=== PATIENT | male | born 1990 | race Caucasian/White ===

== ENCOUNTER 2017-07-12 19:50 | Observation (INO) ==
[2017-07-12] MEDS: Ibuprofen 600 MG TABLET PO ONE ×2 (20:00→20:45)
[2017-07-12] MEDS ORDERED: 0.9 % Sodium Chloride 1,000 ML IVC ONE ×2 (20:37→22:48)
[2017-07-12 20:39] LABS: Bilirubin,Urine Small (Negative); Blood,Urine Negative (Negative); Clarity,Urine Cloudy (Clear); Color,Urine Dark Yellow (Yellow); Glucose,Urine (UA) Normal (Normal); Ketones,Urine Negative (Negative); Leukocyte Esterase,Urine Negative (Negative); Nitrite,Urine Negative (Negative); Protein,Urine 30 mg/dL (Neg-Trace); Urobilinogen,Urine Normal (Normal)
[2017-07-12 20:40] LABS: Basophils % 0.3 %; Eosinophils # 0.1 K/mcL (0.0-0.6); Eosinophils % 1.3 %; Hematocrit 36.3 % (37.5-50.1); Hemoglobin 11.9 g/dL (12.9-16.9); Immature Granulocytes % 0.6 % (0-4); Lymphocytes # 2.3 K/mcL (0.6-4.6); Mean Corpuscular HGB Conc 32.8 g/dL (31.6-35.5); Mean Corpuscular Hemoglobin 28.3 pg (28.0-33.3); Mean Corpuscular Volume 86.2 fL (83.0-100.0); Mean Platelet Volume 9.4 fL (9.4-12.4); Monocytes # 1.1 K/mcL (0.0-1.3); Monocytes % 10.9 %; Neutrophils # 6.3 K/mcL (1.6-8.9); Platelet Count 155 K/mcL (140-400); Red Blood Count 4.21 M/mcL (4.19-5.50); Red Cell Distribution Width 15.7 % (11.5-14.5); Segmented Neutrophils % 63.9 %
--- NOTE | 2017-07-12 20:40 | Emergency Department Note ---
Disposition Clinical Impression: SIRS (systemic inflammatory response syndrome) Disposition: Admitted As Inpatient Condition: Good Referrals: NONE,PCP [Primary Care Provider] - Forms: ED Satisfaction Letter Fever HPI - General Chief Complaint: ED Fever Time Seen by Provider: 07/12/17 20:09 Source: patient Mode of arrival: private vehicle Limitations: no limitations Nursing Notes Reviewed: Yes Vital Signs Reviewed: Yes - History of Present Illness HPI Narrative: 27-year-old male history of prior IV drug use reports 3 months ago, hepatitis, HIV currently undergoing treatment who presents to the ER with a chief complaint of fevers chills generalized body aches cough nausea and vomiting. Reports she has had a fever for 4 days at home. He feels like he is aching all over. States he has had a cough and shortness of breath. He has been nauseated with some vomiting. No chest pain or abdominal pain. He adamantly denies any recent IV drug use. States that his counts were checked 2 months ago and were undetectable. He reports compliance with his medications. No other complaints. Pt Subjective Complaint: fever, malaise, weakness Onset (ago): day(s) Associated symptoms: Reports: chills, myalgias, cough, dyspnea, nausea, vomiting Improves with: nothing Worsens with: nothing Treatments prior to arrival fever: none - Related Data Home Medications Medication Instructions Recorded Confirmed TraZODone 200 mg PO DAILY 03/07/16 05/08/16 Elviteg/Cob/Emtri/Tenof Alafen 1 each PO DAILY 05/08/16 05/08/16 [Genvoya Tablet] Gabapentin [Neurontin] 800 mg PO TID 05/08/16 05/08/16 Previous Rx's Medication Instructions Recorded Quetiapine Fumarate [Seroquel] 300 mg PO HS #90 tablet 05/09/16 hydrOXYzine pamoate [HydrOXYzine 25 mg PO TID PRN #90 capsule 05/09/16 Pamoate] Allergies Allergy/AdvReac Type Severity Reaction Status Date / Time codeine Allergy Hives Verified 03/07/16 19:01 didanosine [From Videx EC] Allergy Hives Verified 03/07/16 19:01 ketorolac [From Toradol] Allergy Hives Verified 03/16/16 18:58 ondansetron Allergy Hives Verified 03/07/16 19:01 [From Zofran (as hydrochloride)] Penicillins [PCN] Allergy Anaphylaxis Verified 03/07/16 19:01 tramadol Allergy Hives Verified 03/07/16 19:01 All systems ED: reviewed and negative except as stated. Constitutional: Reports: fever, chills, weakness Cardiovascular: Denies: chest pain Respiratory: Reports: cough, dyspnea Gastrointestinal: Reports: nausea, vomiting. Denies: abdominal pain Fever PMH - Past Medical History Medical history: Reports: asthma, hepatitis, HIV/AIDS, kidney stones Surgical history: Reports: cholecystectomy Psychiatric history: Reports: no psych history - Social History Smoking Status: Current every day smoker Alcohol use: Reports: none Drug use: Reports: none Physical Exam - General Limitations: no limitations General appearance: alert, anxious - Head Head exam: atraumatic, normocephalic - Eye Eye exam: Present: normal appearance - ENT ENT exam: normal exam - Neck Neck exam: Present: normal inspection, full ROM - Chest Chest inspection: Present: normal inspection, symmetric chest wall rise - Respiratory Respiratory exam: Present: wheezes (Mild end expiratory wheezing.). Absent: respiratory distress, stridor, prolonged expiratory phase - Cardiovascular Cardiovascular exam: Present: normal rhythm, tachycardia, normal heart sounds - Abdominal Exam Abdominal exam: Present: soft, Non-Tender. Absent: tenderness - Extremities Exam Extremities exam: Present: normal inspection, full ROM - Expanded Upper Extremity Exam Shoulder exam: Present: normal inspection, full ROM Arm exam: Present: normal inspection, full ROM Elbow exam: Present: normal inspection, full ROM Forearm/Wrist exam: Present: normal inspection, full ROM Hand exam: Present: normal inspection, full ROM - Expanded Lower Extremity Exam Hip/Pelvis exam: Present: normal inspection, full ROM Upper leg exam: Present: normal inspection, full ROM Knee exam: Present: normal inspection, full ROM Lower leg exam: Present: normal inspection, full ROM Ankle exam: Present: normal inspection, full ROM Foot/toe exam: Present: normal inspection, full ROM - Skin Skin exam: Present: warm, dry Course Course Narrative: Patient seen and examined. He is febrile, tachycardic with a marginal blood pressure. He is alert and answering questions appropriately at this time. We will obtain a sepsis workup including CBC, chem, ESR, CRP, lactate and blood cultures. CT of the chest for evaluation of septic emboli. Rapid influenza swab as well as urinalysis. Patient will begin IV fluid resuscitation with broad-spectrum antibiotics. He will require admission given his immunosuppressed status. - Reevaluation(s) Reevaluation #1: Discussed results of imaging and labs with the patient. He wanted to leave AGAINST MEDICAL ADVICE but then reconsidered and is agreeable with staying. Vital Signs Temperature 103.1 F H 07/12/17 19:51 Pulse Rate 121 07/12/17 19:51 Respiratory Rate 16 07/12/17 19:51 Blood Pressure 98/69 07/12/17 19:51 O2 Sat by Pulse Oximetry 96 07/12/17 19:51 Temperature 103.1 F H 07/12/17 19:51 Pulse Rate 92 07/12/17 23:23 Respiratory Rate 16 07/12/17 23:23 Blood Pressure 108/69 07/12/17 23:23 O2 Sat by Pulse Oximetry 96 07/12/17 19:51 Oxygen Delivery Oxygen Delivery Room Air Fever - MDM Narrative Medical decision making narrative: 27-year-old male presents to the ER due to fevers chills and generalized aches for 4 days. History of HIV and hepatitis. Patient noted to be febrile and tachycardic upon arrival. No source during workup including negative influenza , urinalysis, CT of the chest. Patient's hemodynamics improved here with IV fluids. Patient given vancomycin, aztreonam and Levaquin. Patient admitted to the hospitalist service. - Lab Data Lab results reviewed: Yes I reviewed the patient's lab results. Result diagrams: 07/12/17 16:54 07/12/17 20:31 Lab Results 07/12/17 07/12/17 07/12/17 Range/Units 16:54 20:28 20:28 WBC 9.9 (4.3-11.1) K/mcL RBC 4.21 (4.19-5.50) M/mcL Hgb 11.9 L (12.9-16.9) g/dL Hct 36.3 L (37.5-50.1) % MCV 86.2 (83.0-100.0) fL MCH 28.3 (28.0-33.3) pg MCHC 32.8 (31.6-35.5) g/dL RDW 15.7 H (11.5-14.5) % Plt Count 155 (140-400) K/mcL MPV 9.4 (9.4-12.4) fL Immature Gran % 0.6 (0-4) % Seg Neutrophils % 63.9 % Lymphocytes % 23.0 % Monocytes % 10.9 % Eosinophils % 1.3 % Basophils % 0.3 % Neutrophils # 6.3 (1.6-8.9) K/mcL Lymphocytes # 2.3 (0.6-4.6) K/mcL Monocytes # 1.1 (0.0-1.3) K/mcL Eosinophils # 0.1 (0.0-0.6) K/mcL Basophils # 0.0 (0.0-0.2) K/mcL Reactive Lymphocytes Present A (Not Present) Platelet Estimate Normal (Normal) ESR (0-10) mm/hr Sodium (136-145) mEq/L Potassium (3.5-5.1) mEq/L Chloride (98-107) mEq/L Carbon Dioxide (23-29) mEq/L BUN (6-20) mg/dL Creatinine (0.70-1.30) mg/dL Est GFR ( Amer) (> 60) Est GFR (Non-Af Amer) (> 60) BUN/Creatinine Ratio (6-26) Glucose (70-105) mg/dL Calculated Osmolality (280-300) Lactic Acid (0.5-2.2) mmol/L Calcium (8.6-10.3) mg/dL C-Reactive Protein (Less than 10) mg/L Urine Color Dark Yellow (Yellow) Urine Clarity Cloudy A (Clear) Urine pH 6.0 (5.0-8.0) pH Units Ur Specific [place] 1.030 H (1.010-1.025) Urine Protein 30 H (Neg-Trace) mg/dL Urine Glucose (UA) Normal (Normal) mg/dL Urine Ketones Negative (Negative) mg/dL Urine Blood Negative (Negative) Urine Nitrite Negative (Negative) Urine Bilirubin Small H (Negative) Urine Urobilinogen Normal (Normal) mg/dL Ur Leukocyte Esterase Negative (Negative) Urine Microscopic RBC 5-15 H (0-3) per hpf Urine Microscopic WBC 3-5 H (0-3) per hpf Ur Squamous Epith Cells Moderate H (None-Few) per lpf Urine Bacteria None Seen (None-Few) per hpf Hyaline Casts None Seen (None-Few) per lpf Ur Culture Indicated? NO (NO) Urine Opiates Screen Positive H (Vxeyhe=626) ng/mL Ur Barbiturates Screen Negative (Lxwkqd=564) ng/mL Ur Phencyclidine Scrn Negative (Cutoff=25) ng/mL Ur Amphetamines Screen Negative (Cfaslz=5647) ng/mL U Benzodiazepines Scrn Positive H (Sriwrr=706) ng/mL Urine Cocaine Screen Negative (Cutoff= 300) ng/mL U Marijuana (THC) Screen Positive H (Cutoff = 50) ng/mL Blood Type Antibody Screen 07/12/17 07/12/17 07/12/17 Range/Units 20:31 20:31 20:31 WBC (4.3-11.1) K/mcL RBC (4.19-5.50) M/mcL Hgb (12.9-16.9) g/dL Hct (37.5-50.1) % MCV (83.0-100.0) fL MCH (28.0-33.3) pg MCHC (31.6-35.5) g/dL RDW (11.5-14.5) % Plt Count (140-400) K/mcL MPV (9.4-12.4) fL Immature Gran % (0-4) % Seg Neutrophils % % Lymphocytes % % Monocytes % % Eosinophils % % Basophils % % Neutrophils # (1.6-8.9) K/mcL Lymphocytes # (0.6-4.6) K/mcL Monocytes # (0.0-1.3) K/mcL Eosinophils # (0.0-0.6) K/mcL Basophils # (0.0-0.2) K/mcL Reactive Lymphocytes (Not Present) Platelet Estimate (Normal) ESR 46 H (0-10) mm/hr Sodium 134 L (136-145) mEq/L Potassium 3.9 (3.5-5.1) mEq/L Chloride 104 (98-107) mEq/L Carbon Dioxide 23 (23-29) mEq/L BUN 14 (6-20) mg/dL Creatinine 0.63 L (0.70-1.30) mg/dL Est GFR ( Amer) > 60 (> 60) Est GFR (Non-Af Amer) > 60 (> 60) BUN/Creatinine Ratio 22 (6-26) Glucose 99 (70-105) mg/dL Calculated Osmolality 279 L (280-300) Lactic Acid 1.3 (0.5-2.2) mmol/L Calcium 9.3 (8.6-10.3) mg/dL C-Reactive Protein 51 H (Less than 10) mg/L Urine Color (Yellow) Urine Clarity (Clear) Urine pH (5.0-8.0) pH Units Ur Specific [place] (1.010-1.025) Urine Protein (Neg-Trace) mg/dL Urine Glucose (UA) (Normal) mg/dL Urine Ketones (Negative) mg/dL Urine Blood (Negative) Urine Nitrite (Negative) Urine Bilirubin (Negative) Urine Urobilinogen (Normal) mg/dL Ur Leukocyte Esterase (Negative) Urine Microscopic RBC (0-3) per hpf Urine Microscopic WBC (0-3) per hpf Ur Squamous Epith Cells (None-Few) per lpf Urine Bacteria (None-Few) per hpf Hyaline Casts (None-Few) per lpf Ur Culture Indicated? (NO) Urine Opiates Screen (Xgeqwm=324) ng/mL Ur Barbiturates Screen (Szeahx=514) ng/mL Ur Phencyclidine Scrn (Cutoff=25) ng/mL Ur Amphetamines Screen (Ofigma=9162) ng/mL U Benzodiazepines Scrn (Lqoqjy=430) ng/mL Urine Cocaine Screen (Cutoff= 300) ng/mL U Marijuana (THC) Screen (Cutoff = 50) ng/mL Blood Type Antibody Screen 07/12/17 Range/Units 20:38 WBC (4.3-11.1) K/mcL RBC (4.19-5.50) M/mcL Hgb (12.9-16.9) g/dL Hct (37.5-50.1) % MCV (83.0-100.0) fL MCH (28.0-33.3) pg MCHC (31.6-35.5) g/dL RDW (11.5-14.5) % Plt Count (140-400) K/mcL MPV (9.4-12.4) fL Immature Gran % (0-4) % Seg Neutrophils % % Lymphocytes % % Monocytes % % Eosinophils % % Basophils % % Neutrophils # (1.6-8.9) K/mcL Lymphocytes # (0.6-4.6) K/mcL Monocytes # (0.0-1.3) K/mcL Eosinophils # (0.0-0.6) K/mcL Basophils # (0.0-0.2) K/mcL Reactive Lymphocytes (Not Present) Platelet Estimate (Normal) ESR (0-10) mm/hr Sodium (136-145) mEq/L Potassium (3.5-5.1) mEq/L Chloride (98-107) mEq/L Carbon Dioxide (23-29) mEq/L BUN (6-20) mg/dL Creatinine (0.70-1.30) mg/dL Est GFR ( Amer) (> 60) Est GFR (Non-Af Amer) (> 60) BUN/Creatinine Ratio (6-26) Glucose (70-105) mg/dL Calculated Osmolality (280-300) Lactic Acid (0.5-2.2) mmol/L Calcium (8.6-10.3) mg/dL C-Reactive Protein (Less than 10) mg/L Urine Color (Yellow) Urine Clarity (Clear) Urine pH (5.0-8.0) pH Units Ur Specific [place] (1.010-1.025) Urine Protein (Neg-Trace) mg/dL Urine Glucose (UA) (Normal) mg/dL Urine Ketones (Negative) mg/dL Urine Blood (Negative) Urine Nitrite (Negative) Urine Bilirubin (Negative) Urine Urobilinogen (Normal) mg/dL Ur Leukocyte Esterase (Negative) Urine Microscopic RBC (0-3) per hpf Urine Microscopic WBC (0-3) per hpf Ur Squamous Epith Cells (None-Few) per lpf Urine Bacteria (None-Few) per hpf Hyaline Casts (None-Few) per lpf Ur Culture Indicated? (NO) Urine Opiates Screen (Shcrzw=355) ng/mL Ur Barbiturates Screen (Bdyezs=972) ng/mL Ur Phencyclidine Scrn (Cutoff=25) ng/mL Ur Amphetamines Screen (Pmzldg=6656) ng/mL U Benzodiazepines Scrn (Tlqbam=722) ng/mL Urine Cocaine Screen (Cutoff= 300) ng/mL U Marijuana (THC) Screen (Cutoff = 50) ng/mL Blood Type A POSITIVE Antibody Screen NEGATIVE - Radiology Data Radiology results reviewed: Yes I reviewed the patient's radiology results. Chest CTA 07/12/17 20:37 IMPRESSION: No evidence of pulmonary embolism or acute pulmonary abnormality. No findings to suggest septic emboli. D/ / Ricco Tsang MD / Ricco Tsang MD Interpreting Provider: Ricco Tsang MD S.B.EstebanR. - SMartinBAlistair Situation: Demographics, MOA Background: Presenting Complaint, Relevant PMH, Meds, & Allergies Assessment: Vital Signs, Course and respsone to treatment, Exam Concerns, Patient/Family Expectation, Pertinant Lab Results Recommendation: Barrier(s) to disposition, Recommendation based on pending studies, treatments, or consults S.B.A.R. Report Given to: Dr. Boudreaux Attestation Statement - Attestation Attestation: I, Kaz Ferris MD, personally evaluated this patient and discussed their management with the resident physician. I reviewed the resident's note and agree with the documented findings, medical decision making, and plan of care. 27-year-old male with history of hepatitis and HIV presents complaining of a high fever for 3 days prior to arrival. He complains of cough and congestion. Generalized body aches. No sore throat or earache. No rash or stiff neck. No vomiting or diarrhea. No GI bleed symptoms. No UTI symptoms. Urine has been very dark. On examination patient is a well-developed well-nourished well-appearing young male in no acute distress. He is alert and oriented 3. There is no cyanosis or diaphoresis. Neck is supple and nontender with no lymphadenopathy. No meningismus. Touch his chin to chest. Mucous membranes are moist. Breath sounds are clear and equal bilaterally. Heart regular with a moderate tachycardia. Abdomen is soft and nontender with normal bowel sounds. Labs reviewed. Flu swab negative. CTA of the chest negative. The hospitalist, Dr. Boudreaux, was consulted and accepted admission of the patient.
[2017-07-12 20:42] LABS: Amphetamine Screen,Urine Negative ng/mL (Cutoff=1000); Bacteria,Urine None Seen per hpf (None-Few); Barbiturate Screen,Urine Negative ng/mL (Cutoff=200); Benzodiazepines Screen,Urine Positive ng/mL (Cutoff=200); Cannabinoid Screen,Urine Positive ng/mL (Cutoff = 50); Cocaine Screen,Urine Negative ng/mL (Cutoff= 300); Hyaline Casts,Urine None Seen per lpf (None-Few); Opiate Screen,Urine Positive ng/mL (Cutoff=300); Phencyclidine Screen,Urine Negative ng/mL (Cutoff=25); Squamous Epithelial Cell,Urine Moderate per lpf (None-Few)
[2017-07-12 20:57] LABS: BUN/Creatinine Ratio 22 (6-26); Blood Urea Nitrogen 14 mg/dL (6-20); C-Reactive Protein 51 mg/L (Less than 10); Calcium 9.3 mg/dL (8.6-10.3); Carbon Dioxide 23 mEq/L (23-29); Chloride 104 mEq/L (98-107); Glucose 99 mg/dL (70-105); Osmolality,Calculated 279 (280-300); Potassium 3.9 mEq/L (3.5-5.1); Sodium 134 mEq/L (136-145); eGFR For African Americans > 60 (> 60); eGFR For Non-African Americans > 60 (> 60)
[2017-07-12 21:05] LABS: Platelet Estimate Normal (Normal); Reactive Lymphocytes Present (Not Present)
[2017-07-12] MEDS ORDERED: Levofloxacin 750 MG/150 ML 750 MG/150 ML BAG IVPB ONE (22:47)
[2017-07-13] MEDS ORDERED: Naloxone 0.4 MG/ML INJ IVP PRN (00:18)
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
[2017-07-13] MEDS ORDERED: Acetaminophen 325 MG TABLET PO PRN (00:28)
[2017-07-13] MEDS ORDERED: hydrOXYzine pamoate 25 MG CAPSULE PO PRN (00:42)
[2017-07-13] MEDS: Gabapentin 400 MG CAPSULE PO SCH ×4 (02:30→20:57)
[2017-07-13] MEDS: traZODone 50 MG TABLET PO SCH ×3 (02:31→09:20)
[2017-07-13] MEDS: Nicotine 21 MG PATCH.TD24 TD SCH ×2 (02:31→08:59)
[2017-07-13] MEDS: GENVOYA PO SCH ×2 (02:31→08:59)
[2017-07-13] MEDS: 0.9 % Sodium Chloride 1,000 ML IVC SCH ×2 (02:42→12:00)
[2017-07-13] MEDS: Ibuprofen 400 MG TABLET PO PRN ×2 (04:58→13:29)
[2017-07-13 05:36] LABS: Basophils % 0.3 %; Eosinophils # 0.1 K/mcL (0.0-0.6); Eosinophils % 0.5 %; Hematocrit 33.7 % (37.5-50.1); Immature Granulocytes % 0.7 % (0-4); Lymphocytes # 3.2 K/mcL (0.6-4.6); Lymphocytes % 33.7 %; Mean Corpuscular HGB Conc 32.6 g/dL (31.6-35.5); Mean Corpuscular Hemoglobin 28.1 pg (28.0-33.3); Mean Corpuscular Volume 86.2 fL (83.0-100.0); Monocytes # 0.9 K/mcL (0.0-1.3); Monocytes % 9.5 %; Neutrophils # 5.3 K/mcL (1.6-8.9); Platelet Count 151 K/mcL (140-400); Red Blood Count 3.91 M/mcL (4.19-5.50); Red Cell Distribution Width 15.8 % (11.5-14.5); Segmented Neutrophils % 55.3 %
[2017-07-13 05:55] LABS: Platelet Estimate Normal (Normal)
[2017-07-13 05:56] LABS: Reactive Lymphocytes Present (Not Present)
[2017-07-13 06:09] LABS: BUN/Creatinine Ratio 18 (6-26); Blood Urea Nitrogen 9 mg/dL (6-20); Calcium 8.6 mg/dL (8.6-10.3); Carbon Dioxide 24 mEq/L (23-29); Chloride 108 mEq/L (98-107); Glucose 95 mg/dL (70-105); Osmolality,Calculated 282 (280-300); Potassium 3.5 mEq/L (3.5-5.1); Sodium 137 mEq/L (136-145); eGFR For African Americans > 60 (> 60); eGFR For Non-African Americans > 60 (> 60)
--- NOTE | 2017-07-13 09:56 | Internal Med Progress Note ---
Date of Encounter: 07/13/17 Time of Encounter: 09:54 - Assessment and plan (1) Fever of unknown origin Current Visit: Yes Status: Acute Assessment and plan: -Hx of substance abuse and HIV. -CD4 cound reportedly above 500 recently by patient. - Flu A and B negative, blood cx, respiratory panel pending. CXR, CT chest, UA normal. -symptoms suggestive for viral infection. will check CMV, EBV viral antibody. will check pro-calcitonin. may check DB glucan and galactomannan to rule out Fungal infection. - No signs of endocarditis. will wait for blood cx results to decide further workup plan including ECHO. - continue abx, will dc Tamiflu. - continue IVF. (2) Depression Current Visit: No Status: Chronic Assessment and plan: - continue home meds. Qualifiers: Depression Type: major depressive disorder Major depression recurrence: recurrent Active/Remission status: currently active Major depression episode severity: moderate Qualified Code(s): F33.1 - Major depressive disorder, recurrent, moderate (3) HIV (human immunodeficiency virus infection) Current Visit: No Status: Chronic Assessment and plan: - pending CD4 count. continue home meds. (4) Polysubstance abuse Current Visit: No Status: Chronic Assessment and plan: - monitoring withdrawal symptoms. - counseling about rehab and other available social resource. - Time Spent With Patient Greater than 35 minutes - Subjective Interval history: still having fever, chills, and night sweats. No chest pain, sob, or cough. No dysuria, urgency, or frequency. - Constitutional Vitals: Temp Pulse Resp BP Pulse Ox 98.9 F 91 15 106/64 95 07/13/17 07:00 07/13/17 07:00 07/13/17 07:00 07/13/17 07:00 07/13/17 07:00 Exam: Gen.: Vitals noted. No acute distress. AAOx3. Hot to the touch and somewhat diaphoretic HEENT: PERRL/EOMI, oropharynx clear, Normocephalic, atraumatic Neck: Supple. No adenopathy. Cardiac: RRR but rapid, no murmur, +S1/S2 Pulmonary: CTA bilaterally, no wheezes, rales or rhonchi, equal chest expansion Abdomen: soft, nontender, BS noted, no guarding. Vertical incision scar present midline from prior partial colectomy Back: Nontender throughout. MSK: ROM intact, no joint swelling noted Skin: Erythema with excoriations present over her trunk which patient says is new at time of examination and is concerned about allergic reaction Extremities: no BLE edema, nontender calf, no cyanosis or clubbing Neuro: A&Ox3, moves all extremities, no focal deficits Internal Medicine: Result - Labs CBC & Chem 7: 07/13/17 05:28 07/13/17 05:28 Labs: Short CBC 07/13/17 Range/Units 05:28 WBC 9.5 (4.3-11.1) K/mcL Hgb 11.0 L (12.9-16.9) g/dL Hct 33.7 L (37.5-50.1) % Plt Count 151 (140-400) K/mcL Neutrophils # 5.3 (1.6-8.9) K/mcL BMP 07/13/17 05:28 Sodium 137 Potassium 3.5 Chloride 108 H Carbon Dioxide 24 BUN 9 Creatinine 0.51 L Glucose 95 Calcium 8.6 Consult Discharge Plan - Plan Referrals: NONE,PCP [Primary Care Provider] -
[2017-07-13] MEDS: *HR* OxyCODONE/APAP 5/325 TABLET PO PRN ×2 (15:36→21:44)
[2017-07-13] MEDS ORDERED: *HR* LORazepam 2 MG/ML VIAL IVP ONE (20:53)
[2017-07-14] MEDS: *HR* OxyCODONE/APAP 5/325 TABLET PO PRN ×2 (04:05→10:11)
[2017-07-14 06:05] LABS: Basophils % 0.1 %; Eosinophils # 0.1 K/mcL (0.0-0.6); Eosinophils % 1.4 %; Hematocrit 32.8 % (37.5-50.1); Hemoglobin 10.6 g/dL (12.9-16.9); Immature Granulocytes % 0.8 % (0-4); Lymphocytes # 1.9 K/mcL (0.6-4.6); Mean Corpuscular HGB Conc 32.3 g/dL (31.6-35.5); Mean Corpuscular Hemoglobin 27.9 pg (28.0-33.3); Mean Corpuscular Volume 86.3 fL (83.0-100.0); Mean Platelet Volume 10.2 fL (9.4-12.4); Monocytes # 0.7 K/mcL (0.0-1.3); Monocytes % 9.3 %; Neutrophils # 4.7 K/mcL (1.6-8.9); Platelet Count 140 K/mcL (140-400); Red Cell Distribution Width 15.4 % (11.5-14.5); Segmented Neutrophils % 63.4 %
[2017-07-14 06:23] LABS: BUN/Creatinine Ratio 18 (6-26); Blood Urea Nitrogen 10 mg/dL (6-20); Calcium 8.4 mg/dL (8.6-10.3); Carbon Dioxide 23 mEq/L (23-29); Chloride 106 mEq/L (98-107); Glucose 112 mg/dL (70-105); Osmolality,Calculated 282 (280-300); Potassium 3.2 mEq/L (3.5-5.1); Sodium 136 mEq/L (136-145); eGFR For African Americans > 60 (> 60); eGFR For Non-African Americans > 60 (> 60)
[2017-07-14] MEDS: GENVOYA PO SCH (09:17)
[2017-07-14] MEDS: Nicotine 21 MG PATCH.TD24 TD SCH (09:17)
[2017-07-14] MEDS: traZODone 50 MG TABLET PO SCH (09:17)
[2017-07-14] MEDS: Gabapentin 400 MG CAPSULE PO SCH (09:17)
--- NOTE | 2017-07-14 10:47 | Discharge Summary ---
Date of Encounter: 07/14/17 Time of Encounter: 10:45 - Discharge Diagnosis (1) SIRS (systemic inflammatory response syndrome) Priority: Secondary Status: Acute (2) Borderline personality disorder Priority: Secondary Status: Chronic (3) Polysubstance abuse Priority: Secondary Status: Chronic (4) Fever Priority: Primary Status: Acute Qualifiers: Fever type: unspecified Qualified Code(s): R50.9 - Fever, unspecified (5) HIV (human immunodeficiency virus infection) Priority: Secondary Status: Chronic - Discharge Medications Prescriptions: DiphenhydraMINE [Benadryl] 50 mg PO HS #30 capsule Gabapentin [Neurontin] 800 mg PO TID #90 tablet Quetiapine Fumarate [Seroquel] 300 mg PO HS #90 tablet Home Medications: Elviteg/Cob/Emtri/Tenof Alafen [Genvoya Tablet] 1 tab PO DAILY 05/08/16 [History ] DiphenhydraMINE [Benadryl] 50 mg PO HS #30 capsule 07/14/17 [Rx] Gabapentin [Neurontin] 800 mg PO TID #90 tablet 07/14/17 [Rx] Quetiapine Fumarate [Seroquel] 300 mg PO HS #90 tablet 07/14/17 [Rx] Allergies/Adverse Reactions: 3 Allergy/AdvReac Type Severity Reaction Status Date / Time codeine Allergy Hives Verified 03/07/16 19:01 didanosine [From Videx EC] Allergy Hives Verified 03/07/16 19:01 ketorolac [From Toradol] Allergy Hives Verified 03/16/16 18:58 ondansetron Allergy Hives Verified 03/07/16 19:01 [From Zofran (as hydrochloride)] Penicillins [PCN] Allergy Anaphylaxis Verified 03/07/16 19:01 tramadol Allergy Hives Verified 03/07/16 19:01 Date of admission: 07/12/17 23:52 Primary care physician: PCP NONE Consults: 07/13/17 02:27 Consult to Pastoral Services [CONS] Stat Comment: Discharging clinician: Brit Molina Anticipated date of discharge: 07/14/17 (left AMA) - Patient Status Disposition: Left Against Medical Advice Condition: Fair - Discharge Instructions Follow Up With: NONE,PCP [Primary Care Provider] - Interval History: patient says Dr Kanika told him he can go home today, I went to his room multiple times about the fever, unknown cause, I will consult ID, some dlabs are pending. he insists going home AMA Hospital course: Mr. Yates is a 27 year old male has of HIV CD4 cound reportedly above 500 recently by patient. Admitted for fever. - Flu A and B negative, blood cx, respiratory panel pending. CXR, CT chest, UA normal. -symptoms suggestive for viral infection. will check CMV, EBV viral antibody. will check pro-calcitonin. may check DB glucan and galactomannan to rule out Fungal infection. he refused lab, noncompliance, last night Tma 102. patient insists leaving AMA despite the risk of due to lunknow causes for fever, possible infection. Patient states he will come back if he does not feel well Time spent discussing smoking cessation with patient: more than 10 minutes - Time Spent with Patient Total time spent providing and/or coordinating discharge services: Greater than 30 minutes - Constitutional Vitals: Temp Pulse Resp BP Pulse Ox 99.2 F 108 18 93/54 96 07/14/17 06:37 07/14/17 06:37 07/14/17 06:37 07/14/17 06:37 07/14/17 09:20 General appearance: Present: A&O X 3, answers questions appropriately Exam: CONSTITUTIONAL: patient appears as an age appropriate male in no acute distress. EYES Clear sclerae, bilateral pupils are equal, reactive to light. EMOI. RESPIRATORY: No accessory muscle use, bilateral clear to auscultation, no wheezing, no crackles/rales. CARDIOVASCULAR: Regular heart rate, normal S1 and S2, no murmurs GASTROINTESTINAL: bowel sounds present, soft, no tenderness. MUSCULOSKELETAL: Joints in normal range of motion, no clubbing, no edema, no cyanosis. Bilateral peripheral pulses 2+. NEUROLOGIC: CN II to XII are grossly intact, no focal neurological deficit.
[2017-07-14 11:27] VITALS: BP 97/59
== END 2017-07-14 11:10 | disposition left against medical advice (07) ==
LOC: 3ANU 19:50 → EMEROO 19:50 → SUATTDRO 23:52 → 3ANU 07-13 00:11
PROVIDERS: ADMIT Internal Medicine; ATTEND Hospitalist